=== PATIENT | female | born 1940 | race Caucasian/White ===

== ENCOUNTER 2019-02-02 11:26 | Inpatient (IN) | payer MEDICARE ==
[~2019-02-02] VITALS: Ht 177.8 cm; Wt 92.3 kg
[2019-02-02] MEDS ORDERED: MORPHINE 4 MG/ML 1ML VIAL/SYRINGE (J2270) IV PRN ×2 (12:00→15:00)
[2019-02-02] MEDS ORDERED: ONDANSETRON 4MG/2ML VIAL (J2405) IV ONE (12:00)
[2019-02-02] MEDS ORDERED: ATOR40TA75 PO (12:02)
[2019-02-02] MEDS ORDERED: CITA20TA6 PO (12:02)
[2019-02-02] MEDS ORDERED: DITR1TAB PO (12:02)
[2019-02-02] MEDS ORDERED: ACET1TAB37 PO (12:02)
[2019-02-02] MEDS ORDERED: VITAD1000T PO (12:02)
[2019-02-02] MEDS ORDERED: GLIP10TA PO (12:02)
[2019-02-02] MEDS ORDERED: PANT500T PO (12:02)
[2019-02-02] MEDS ORDERED: NS 1,000 ML IV ONE (12:15)
[2019-02-02] MEDS ORDERED: diphenhydrAMINE INJ 50MG/ML VIAL (J1200) IV STA (12:19)
[2019-02-02] MEDS ORDERED: fentaNYL 100 MCG/2 ML INJECTION (J3010) IV PRN ×2 (12:45→19:00)
--- NOTE | 2019-02-02 12:45 | REP ---
PELVIS AND RIGHT HIP: AP view of the pelvis and two views of the right hip are performed. Study is somewhat limited as the patient is not able to move for appropriate positioning. There is an intertrochanteric fracture of the proximal right femur. There is no other evidence of fracture or dislocation of the visualized osseous structures. IMPRESSION: Intertrochanteric fracture proximal right femur. Electronically Signed by Juancho Marrufo MD 02/02/2019 07:32 P
[2019-02-02 13:03] LABS: HEMOGLOBIN 14.2 g/dl (12.0-15.5); MEAN CORPUSCULAR HEMOGLOBIN 29.6 pg (27.0-33.0); MEAN CORPUSCULAR VOLUME 89.8 fl (80.0-96.0); PLATELET COUNT, AUTOMATED 262 10^3/uL (150-450); RED BLOOD COUNT 4.79 10^6/uL (4.00-5.40); WHITE BLOOD COUNT 13.6 10^3/uL (4.0-10.0)
[2019-02-02 13:17] LABS: INR 0.97
[2019-02-02 13:18] LABS: PARTIAL THROMBOPLASTIN TIME 27.6 SECONDS (25.4-37.6)
--- NOTE | 2019-02-02 13:20 | REP ---
CHEST, SINGLE VIEW: Single view of the chest is performed. No infiltrate is seen in either lung. Cardiac silhouette is mildly prominent, but may be magnified by AP supine technique. Vasculature also is mildly prominent, but again is probably accentuated by technique. There are metallic clips in both axillary regions. There is calcification of the thoracic aorta. The mediastinal silhouette is otherwise unremarkable. There are degenerative changes of the spine. IMPRESSION: No acute infiltrate. Electronically Signed by Juancho Marrufo MD 02/02/2019 07:33 P
[2019-02-02 13:36] LABS: BLOOD UREA NITROGEN 24 MG/DL (7-18); CALCIUM LEVEL 8.9 MG/DL (8.8-10.2); CARBON DIOXIDE LEVEL 31 MEQ/L (21-32); CHLORIDE LEVEL 103 MEQ/L (98-107); CK-MB VALUE MASS 1.3 NG/ML (<3.6); CPK CREATINE PHOSPHOKINASE 131 U/L (26-192); CREATININE FOR GFR 0.62 MG/DL (0.55-1.30); GLOMERULAR FILTRATION RATE > 60.0 (>39); GLUCOSE, FASTING 172 MG/DL (70-100); MB/CK RELATIVE INDEX 0.99 (< OR =4); POTASSIUM SERUM 4.7 MEQ/L (3.5-5.1); SODIUM LEVEL 139 MEQ/L (136-145); TROPONIN I < 0.02 NG/ML (< 0.10)
[2019-02-02] MEDS ORDERED: NS 1,000 ML IV SCH (14:15)
--- NOTE | 2019-02-02 14:59 | HPEPDOC ---
General Date of Admission Feb 02, 2019 at 13:45 Date of Service: Feb 02, 2019 Chief Complaint The patient is a 78-year-old female admitted with a reason for visit of Fx Hip. Source: Patient, Family Exam Limitations: No limitations Severity: Moderate History of Present Illness This is a 78 yo female with past medical history of DM2, depression, b/l breast CA s/p chemo/radiation and b/l mastectomy about 7 years prior, urinary retention and DLP who presented to the ED with the complaint of pain at the right upper thigh area after falling down at home. The patient states that when she was at home this morning, she tried to move some inner tubes in her garage, unfortunately when she walked away her right foot became entangled in the rope and she fell onto her right side. She immediately had pain in her right hip region and called for help. She wasn't able to get up and bear weight on the right leg due to the pain. She states she did not have any preceding SOB, CP, palpitations n/v, light headedness prior to the fall, she did not sustain LOC, did not hit her head and she has clear recollection of the event. She denies p ain in the right hip region at all prior to the fall. She states she ate breakfast around 7:30-8 AM this morning, she did take all of her home medications this morning including her metformin and her glipizide. Currently she is laying in bed and complains of right intertrochanter pain which she can localize by pointing to it using her finger, she states she only has pain when she moves her leg, she denies SOB, CP or palpitations, no n/v. Home Medications Scheduled Atorvastatin Calcium (Atorvastatin Calcium) 40 Mg Tablet, 40 MG PO DAILY, (R eported) Cholecalciferol (Vitamin D3) (Vitamin D3) 5,000 Unit Tablet, 5,000 UNIT PO DAILY, (Reported) Citalopram Hydrobromide (Citalopram HBr) 20 Mg Tablet, 20 MG PO DAILY, (Reported) Glipizide (Glipizide Xl) 5 Mg Tab.er.24, 5 MG PO DAILY, (Reported) Metformin HCl (Metformin HCl) 500 Mg Tablet, 500 MG PO BID, (Reported) Oxybutynin Chloride (Ditropan Xl) 10 Mg Tab.er.24, 10 MG PO DAILY, (Reported) Pantothenic Acid (Vit B5) (Pantothenic Acid) 500 Mg Tablet, 500 MG PO DAILY, (Reported) Rivaroxaban (Xarelto) 10 Mg Tablet, 10 MG PO DAILY Scheduled PRN Acetaminophen (Acetaminophen) 325 Mg Tablet, 650 MG PO Q4H PRN for PAIN, (Reported) Tramadol HCl (Tramadol HCl) 50 Mg Tablet, 1-2 TAB PO Q4H PRN for PAIN Allergies Coded Allergies: aspirin (Verified Allergy, Mild, nausea, 02/02/19) Past Medical History Medical History as per [facility] Surgical History b/l mastectomy, breast lumpectomy, left knee replacement Family History Significant Family History: Diabetes Social History * Smoker: former Smoker (quit 20 years ago, was 1 ppd for 10+ years) Alcohol: rarely Drugs: jorge lives at home in senior apartment building in [facility], daughter Ghazal is also in [place] and helps to look after her A-FIB/CHADSVASC A-FIB History Current/History of A-Fib/PAF?: No Current PO Anticoag Therapy: No Review of Systems Constitutional: Reports: Malaise, Fatigue; Denies: Chills, Fever Skin: Denies: Rash, Lesions Pulmonary: Denies: Dyspnea, Cough Cardiovascular: Denies: Chest Pain, Palpitations, Lt Headedness Gastrointestinal: Denies: Nausea, Vomiting, Abdominal Pain, Diarrhea, Constipation Genitourinary: Denies: Dysuria Musculoskeletal: Reports: Other Symptoms (right intertrochanter pain) Neurological: Denies: Weakness Psych: Reports: Mood Normal Physical Examination General Exam: Positive: Alert, Cooperative, Mild Distress Eye Exam: Positive: EOMI ENT Exam: Positive: Mucous membr. moist/pink Chest Exam: Positive: Normal air movement; Negative: Rales, Rhonchi, Wheezing Heart Exam: Positive: Rate Normal, Normal S1, Normal S2; Negative: Gallops, Murmurs, Rubs Abdomen Exam: Positive: Normal bowel sounds, Soft; Negative: Tenderness, Hepatospenomegaly Extremity Exam: Positive: Tenderness (intertrochanter right side, with leg movement); Negative: Clubbing, Cyanosis, Edema, Swelling Skin Exam: Negative: Rash, Breakdown Neuro Exam: Positive: Normal Speech Psych Exam: Positive: Mood NL Vital Signs Vital Signs Date Time Temp Pulse Resp B/P (MAP) Pulse Ox O2 Delivery O2 Flow Rate FiO2 02/02/19 14:01 78 18 149/67 (94) 95 Room Air 02/02/19 11:29 97.9 Laboratory Data Labs 24H Laboratory Tests 2 02/02/19 12:20: Nucleated Red Blood Cells % (auto) 0.0, Prothrombin Time 13.0, Prothromb Time International Ratio 0.97, Activated Partial Thromboplast Time 27.6, Anion Gap 5L, Glomerular Filtration Rate > 60.0, Blood Urea Nitrogen 24H, Creatinine 0.62, Sodium Level 139, Potassium Level 4.7, Chloride Level 103, Carbon Dioxide Level 31, Calcium Level 8.9, Total Creatine Kinase 131, Creatine Kinase MB 1.3, Creatine Kinase MB Relative Index 0.99, Troponin I < 0.02 CBC/BMP Laboratory Tests 02/02/19 12:20 Red Blood Count 4.79, Mean Corpuscular Volume 89.8, Mean Corpuscular Hemoglobin 29.6, Mean Corpuscular Hemoglobin Concent 33.0, Red Cell Distribution Width 13.3, Calcium Level 8.9, Total Creatine Kinase 131 Assessment/Plan 1. Right lower extremity pain secondary to R. intertrochanteric femur fracture -Hip/pelvic X-ray in ED appreciated -Orthopedics have been consulted, appreciate Dr. Hawkins-plan is for sx this afte rnoon/early evening -bedrest, pain control w/ Morphine, c/w IVF NS --EKG in ED reviewed, without concern for active or impending ischemia, no concerning ST-T wave changes. I did not see any pathological Q waves. -Due to DM2 and age, she represents a 3.9 % 30 day risk of , AR or cardiac arrest according to the 2019 RCRI, she represents a Class 1 low risk for moderate risk surgery in this case being an orthopedic r hip repair -Since she is 78 we have ordered BNP, if elevated will order EKG in PACU and will trend troponins for 48 hrs. -The patient is medically optimized for surgery. 2. DM2 -Pt NPO, FSBS q6h, holding home metformin and glipizide, since she did take these medications this morning, she may require D5W fluids this afternoon - Last FSBS was 172, acceptable 3. DLP- -Holding home statin, we will likely resume this tomorrow 4. Depression -holding home citalopram for now, can consider adding this tomorrow. 5. DVT px - in light of expected sx., will hold on AC., TEDS/SCD's - she will be on AC by Orthopedics for 4-6 wks post op Plan / VTE VTE Prophylaxis Ordered?: Yes GME ATTESTATION GME ATTESTATION My faculty preceptor for this patient encounter was physically present during the encounter and was fully available. All aspects of the patient interview, examination, medical decision making process, and medical care plan development were reviewed and approved by the faculty preceptor. The faculty preceptor is aware and concurs with the plan as stated in the body of this note and will attest to such by his/her cosignature. ATTENDING NOTE I personally performed a history and physical examination of the patient and discussed the management with the resident. I reviewed the resident's note and agree with the documented findings and plan of care. BECKA ESCOBEDO DO Feb 02, 2019 14:59 ABEBE OAKES MD Feb 06, 2019 05:46
[2019-02-02] MEDS ORDERED: VITA500038 PO (15:02)
[2019-02-02] MEDS ORDERED: METF-839 PO (15:02)
[2019-02-02] MEDS ORDERED: NON-325T5 PO (15:02)
[2019-02-02] MEDS ORDERED: GLIP-162 PO (15:02)
[2019-02-02 15:49] LABS: NT-PRO BNP 270 PG/ML (<450)
[2019-02-02] MEDS ORDERED: MIDAZOLAM INJ 2 MG/2 ML VIAL (J2250) As Ordered ONE ×2 (16:44→17:37)
[2019-02-02] MEDS ORDERED: BUPIVACAINE HCL 0.25% 10 ML VIAL As Ordered ONE (16:44)
[2019-02-02] MEDS ORDERED: fentaNYL 100 MCG/2 ML INJECTION (J3010) As Ordered ONE ×2 (16:44→17:37)
--- NOTE | 2019-02-02 17:03 | CR.PDOC ---
General Date of Consultation: Feb 02, 2019 Referring Provider: Jose Armando Sifuentes M.D. Attending Physician: RAMON GANDHI MD Consultation REASON FOR CONSULTATION/CHIEF COMPLAINT: R hip fracture. HISTORY OF PRESENT ILLNESS: Patient is a 78 y/o female community ambulator with no assistive devices who sustained a mechanical fall from standing height earlier today resulting in immediate R hip pain and inability to bear weight. She was brought to the emergency room where she was found to have an intertr ochanteric femur fracture and orthopedics was consulted for further management. Patient does have a history of bilateral mastectomy for recurrent breast CA in 2009 but denied any antecedent hip pain prior to fall. She denied any antecedent chest pain, calf pain, shortness of breath, headache, or nausea. ALLERGIES: Please see below. HOME MEDICATIONS: Please see below. PAST MEDICAL HISTORY: 1. Breast Cancer per HPI 2. Hyperlipidemia 3. Urinary retention PAST SURGICAL HISTORY: 1. R breast lumpectomy 2. Bilateral mastectomy FAMILY HISTORY: non contributory SOCIAL HISTORY: Patient lives alone and is independent in all ADLs. She lives in [place] but has local house where she spends summer. She is retired. Does not smoke or use illicit drugs. Daughter Ghazal, who was present, is HC proxy but patient currently able to make independent decisions regarding care. REVIEW OF SYSTEMS: CONSTITUTIONAL: No fevers, chills, or night sweats. HEENT: No headache or visual disturbances. CARDIOVASCULAR: No chest pain or palpitations. RESPIRATORY: No cough, wheeze, or shortness of breath. MUSCULOSKELETAL: R elbow abrasion in addition to hip pain from fall. GASTROINTESTINAL: No nausea, vomiting, or diarrhea. NEUROLOGICAL: No numbness, tingling, seizures. HEMATOLOGIC/LYMPHATIC: Breast CA history per HPI. PHYSICAL EXAMINATION: VITAL SIGNS: Please see below. GENERAL APPEARANCE: Well nourished female, appears stated age, no acute distress. HEENT: Normocephalic, atraumatic. RESPIRATORY: Non labored breathing. CARDIOVASCULAR: RRR, 2+ DP/PT pulse, BCR all digits RLE. EXTREMITIES: Focused exam of the RLE demonstrates a shortened, externally rotated RLE. There are no open wounds or abrasions. Maximally tender about the anterior and lateral hip. Able to flex/extend all toes. No tenderness about the knee or leg. There is also a small superficial abrasion about the right elbow with full painless elbow ROM. NEUROLOGICAL: Sensation and motor intact in RLE femoral, tibial, sural, saphenous, SPN, DPN distributions LABORATORY DATA: Please see below. Radiographs: Plain radiographs of the pelvis, R hip, and femur demonstrated a displaced intertrochanteric femur fracture ASSESSMENT: 78 y/o female with a displaced R intertrochanteric femur fracture PLAN: I discussed with the patient the nature of her injury and the risks, benefits, indications, and alternatives of operative and nonoperative treatment and recommended closed versus open reduction and cephalomedullary nail fixation. De spite not having a history of antecedent hip pain, given her breast cancer history this may still possibly represent a pathologic fracture therefore will use a long cephalomedullary nail to protect the entire bone and send reamings for pathology. I counseled the patient that I will be her operating surgeon, but her follow up care will be conducted by [facility]. She expressed understanding with this arrangement and provided informed consent for R hip closed versus open reduction and internal fixation. -NPO -2g Ancef IV OCTOR -Will be WBAT post operatively -Xarelto 10mg PO daily begin POD1 Vital Signs/I&O Vital Signs Date Time Temp Pulse Resp B/P (MAP) Pulse Ox O2 Delivery O2 Flow Rate FiO2 02/02/19 14:01 78 18 149/67 (94) 95 Room Air 02/02/19 11:29 97.9 Laboratory Data Labs 24H Laboratory Tests 2 02/02/19 12:20: Nucleated Red Blood Cells % (auto) 0.0, Prothrombin Time 13.0, Prothromb Time International Ratio 0.97, Activated Partial Thromboplast Time 27.6, Anion Gap 5L, Glomerular Filtration Rate > 60.0, Blood Urea Nitrogen 24H, Creatinine 0.62, Sodium Level 139, Potassium Level 4.7, Chloride Level 103, Carbon Dioxide Level 31, Calcium Level 8.9, Total Creatine Kinase 131, Creatine Kinase MB 1.3, Creatine Kinase MB Relative Index 0.99, Troponin I < 0.02 CBC/BMP Laboratory Tests 02/02/19 12:20 Red Blood Count 4.79, Mean Corpuscular Volume 89.8, Mean Corpuscular Hemoglobin 29.6, Mean Corpuscular Hemoglobin Concent 33.0, Red Cell Distribution Width 13.3, Calcium Level 8.9, Total Creatine Kinase 131 Allergies Coded Allergies: aspirin (Verified Allergy, Mild, nausea, 02/02/19) Home Medications Scheduled Atorvastatin Calcium (Atorvastatin Calcium) 40 Mg Tablet, 40 MG PO DAILY, (Reported) Cholecalciferol (Vitamin D3) (Vitamin D3) 5,000 Unit Tablet, 5,000 UNIT PO DAILY, (Reported) Citalopram Hydrobromide (Citalopram HBr) 20 Mg Tablet, 20 MG PO DAILY, (Repor shane) Glipizide (Glipizide Xl) 5 Mg Tab.er.24, 5 MG PO DAILY, (Reported) Metformin HCl (Metformin HCl) 500 Mg Tablet, 500 MG PO BID, (Reported) Oxybutynin Chloride (Ditropan Xl) 10 Mg Tab.er.24, 10 MG PO DAILY, (Reported) Pantothenic Acid (Vit B5) (Pantothenic Acid) 500 Mg Tablet, 500 MG PO DAILY, (Reported) Scheduled PRN Acetaminophen (Acetaminophen) 325 Mg Tablet, 650 MG PO Q4H PRN for PAIN, (Reported) RAOMN GANDHI MD Feb 02, 2019 14:34
[2019-02-02] MEDS ORDERED: ceFAZolin 2 GM/D5W 50 ML IV BAG (J0690 PER 500MG) As Ordered ONE (17:13)
[2019-02-02] MEDS ORDERED: KETAMINE HCL 200 MG/20 ML VIAL As Ordered ONE (17:37)
[2019-02-02] MEDS ORDERED: PROPOFOL 200 MG/20 ML VIAL As Ordered ONE ×2 (17:40→17:41)
[2019-02-02] MEDS ORDERED: BUPIVACAINE HCL 0.5% 30 ML VIAL As Ordered ONE (17:40)
[2019-02-02] MEDS ORDERED: LIDOCAINE 2% INJ 100 MG/5 ML SDV (FOR ANES.) As Ordered ONE (17:41)
[2019-02-02] MEDS ORDERED: dexameTHASONE 4 MG/ML 1ML VIAL (J1100) As Ordered ONE (17:41)
[2019-02-02] MEDS ORDERED: ePHEDrine SULFATE 25 MG/5 ML(5MG/ML) SYRINGE As Ordered ONE (17:46)
[2019-02-02] MEDS ORDERED: PHENYLephrine HCL 500 MCG/5 ML (100MCG/ML) SYRINGE (J2370) As Ordered ONE (17:46)
[2019-02-02] MEDS ORDERED: oxyCODONE 5MG TAB PO PRN (19:00)
[2019-02-02] MEDS ORDERED: PROMETHAZINE INJ 25 MG/ML VIAL (J2550) IV PRN (19:00)
[2019-02-02] MEDS ORDERED: LR 1,000 ML IV SCH (19:00)
[2019-02-02] MEDS ORDERED: METOCLOPRAMIDE INJ 10MG/2ML VIAL (J2765) IV PRN (19:00)
[2019-02-02] MEDS ORDERED: LIDOCAINE 1% MDV 20ML VIAL ONE (19:10)
[2019-02-02] MEDS ORDERED: BUPIVACAINE/EPIN 0.25% 30 ML VIAL ONE (19:10)
[2019-02-02] MEDS ORDERED: dexameTHASONE 10 MG/1 ML VIAL PRES.FREE (J1100) ONE (19:10)
[2019-02-02] MEDS ORDERED: ACETAMINOPHEN TAB 650MG DOSE (2X325MG) PO PRN (19:15)
[2019-02-02] MEDS ORDERED: traMADol 50 MG TAB PO PRN ×2 (19:15)
[2019-02-02] MEDS ORDERED: ONDANSETRON 4MG/2ML VIAL (J2405) IV PRN (19:30)
[2019-02-02 20:15] VITALS: BP 118/54
[2019-02-02] MEDS: DOCUSATE SODIUM 100 MG CAP PO SCH (20:43)
[2019-02-02 20:45] VITALS: BP 129/80
[2019-02-02 21:45] VITALS: BP 138/72
[2019-02-02 22:45] VITALS: BP 140/73
[2019-02-03 02:00] VITALS: BP 123/57
[2019-02-03 06:00] VITALS: BP 127/58
[2019-02-03 06:22] LABS: HEMATOCRIT 36.4 % (36.0-47.0); MEAN CORPUSCULAR HEMOGLOBIN 30.1 pg (27.0-33.0); MEAN CORPUSCULAR HGB CONC 33.5 g/dl (32.0-36.5); MEAN CORPUSCULAR VOLUME 89.9 fl (80.0-96.0); PLATELET COUNT, AUTOMATED 241 10^3/uL (150-450); RED BLOOD COUNT 4.05 10^6/uL (4.00-5.40); WHITE BLOOD COUNT 8.5 10^3/uL (4.0-10.0)
[2019-02-03 06:29] LABS: HEMOGLOBIN 12.2 g/dl (12.0-15.5)
[2019-02-03] MEDS ORDERED: ONDANSETRON 4 MG TAB (S0181) PO PRN (06:30)
[2019-02-03 06:40] LABS: BLOOD UREA NITROGEN 20 MG/DL (7-18); CALCIUM LEVEL 8.8 MG/DL (8.8-10.2); CARBON DIOXIDE LEVEL 28 MEQ/L (21-32); CHLORIDE LEVEL 103 MEQ/L (98-107); CREATININE FOR GFR 0.65 MG/DL (0.55-1.30); GLOMERULAR FILTRATION RATE > 60.0 (>39); GLUCOSE, FASTING 192 MG/DL (70-100); POTASSIUM SERUM 4.4 MEQ/L (3.5-5.1); SODIUM LEVEL 138 MEQ/L (136-145)
--- NOTE | 2019-02-03 07:00 | REP ---
RIGHT FEMUR: AP and lateral views of the right femur are performed. Intertrochanteric fracture is again noted of the proximal right femur with mild varus angulation. I do not see a definite underlying bone lesion. The more distal femur is intact. There is moderate narrowing of the medial knee joint with subchondral sclerosis and spurring. There is mild narrowing at the hip joint. Electronically Signed by Juancho Marrufo MD 02/03/2019 04:13 P
[2019-02-03] MEDS ORDERED: glipiZIDE (GLUCOTROL) 5 MG TAB PO SCH (07:30)
[2019-02-03] MEDS: MIRALAX *UNIT DOSE* 17GM PACKET PO SCH (09:00)
[2019-02-03] MEDS: MOM 30ML SUSPENSION UDC PO SCH (09:34)
[2019-02-03] MEDS: DOCUSATE SODIUM 100 MG CAP PO SCH ×2 (09:34→20:06)
--- NOTE | 2019-02-03 09:36 | REP ---
C-ARM VIEWS RIGHT FEMUR: Multiple C-arm views of the right femur are performed during placement of an intramedullary hanane, proximal anchor and two distal screws. Proximal femur fracture is well aligned. 2 minutes 56 seconds of fluoroscopy time utilized. Electronically Signed by Juancho Marrufo MD 02/03/2019 04:26 P
--- NOTE | 2019-02-03 10:24 | IPNPDOC ---
Subjective Date Seen The patient was seen on 02/03/19. Subjective Chief Complaint/HPI No complaints this am. Said slept all night without issues. Pain is controlled. WIll be working with PT today. No fever or chills, no chest pain ro SOB , no abdominal pain , nausea or vomiting or diarrhea Objective Physical Examination General Exam: Positive: Alert, Cooperative, Mild Distress Eye Exam: Positive: EOMI ENT Exam: Positive: Mucous membr. moist/pink Chest Exam: Positive: Normal air movement; Negative: Rales, Rhonchi, Wheezing Heart Exam: Positive: Rate Normal, Normal S1, Normal S2; Negative: Gallops, Murmurs, Rubs Abdomen Exam: Positive: Normal bowel sounds, Soft; Negative: Tenderness, Hepatospenomegaly Extremity Exam: Positive: Tenderness (intertrochanter right side, with leg movement); Negative: Clubbing, Cyanosis, Edema, Swelling Skin Exam: Negative: Rash, Breakdown Neuro Exam: Positive: Normal Speech Psych Exam: Positive: Mood NL Assessment /Plan Assessment This is a 78 yo female with past medical history of DM2, depression, b/l breast CA s/p chemo/radiation and b/l mastectomy about 7 years prior, urinary retention and DLP who presented to the ED with the complaint of pain at the right upper thigh area after falling down at home. She was found to have right intertrochanteric femoral neck fracture. Right lower extremity pain secondary to R. intertrochanteric femur fracture Hip/pelvic X-ray in ED appreciated s/p ORIF on 02/02/[address] Hawkins. pain control and DVT prophylaxis as per ortho Bowel regimen. DM2 restart glipizide. hold metformin in hosptital start lispro sliding scale. DLP- statin Depression citalopram Plan/VTE VTE Prophylaxis Ordered?: Yes VS, I&O, 24H, Fishbone Vital Signs/I&O Vital Signs Date Time Temp Pulse Resp B/P (MAP) Pulse Ox O2 Delivery O2 Flow Rate FiO2 02/03/19 06:00 97.8 76 18 127/58 (81) 94 2.0 02/02/19 16:20 Room Air I&O- Last 24 Hours up to 6 AM 02/03/19 06:00 Intake Total 2280 ml Output Total 1225 ml Balance 1055 ml Laboratory Data 24H LABS Laboratory Tests 2 02/02/19 12:20: Nucleated Red Blood Cells % (auto) 0.0, Prothrombin Time 13.0, Prothromb Time International Ratio 0.97, Activated Partial Thromboplast Time 27.6, Anion Gap 5L, Glomerular Filtration Rate > 60.0, Blood Urea Nitrogen 24H, Creatinine 0.62, Sodium Level 139, Potassium Level 4.7, Chloride Level 103, Carbon Dioxide Level 31, Calcium Level 8.9, Total Creatine Kinase 131, Creatine Kinase MB 1.3, Creatine Kinase MB Relative Index 0.99, Troponin I < 0.02, XE-Pey-B-Type Natriuretic Peptide 270 02/02/19 20:14: Bedside Glucose (Misc Panel) 148H 02/03/19 05:14: Nucleated Red Blood Cells % (auto) 0.0, Anion Gap 7L, Glomerular Filtration Rate > 60.0, Blood Urea Nitrogen 20H, Creatinine 0.65, Sodium Level 138, Potassium Level 4.4, Chloride Level 103, Carbon Dioxide Level 28, Calcium Level 8.8 CBC/BMP Laboratory Tests 02/02/19 12:20 Red Blood Count 4.79, Mean Corpuscular Volume 89.8, Mean Corpuscular Hemoglobin 29.6, Mean Corpuscular Hemoglobin Concent 33.0, Red Cell Distribution Width 13.3, Calcium Level 8.9, Total Creatine Kinase 131 02/03/19 05:14 Red Blood Count 4.05, Mean Corpuscular Volume 89.9, Mean Corpuscular Hemoglobin 30.1, Mean Corpuscular Hemoglobin Concent 33.5, Red Cell Distribution Width 13.3, Calcium Level 8.8 ABEBE OAKES MD Feb 03, 2019 10:24
[2019-02-03] MEDS ORDERED: GLUCAGON FOR INJ 1 MG VIAL (J1610) SC PRN (10:30)
[2019-02-03] MEDS ORDERED: DEXTROSE 50% 50 ML SYRINGE IV PRN (10:30)
[2019-02-03] MEDS ORDERED: GLUCOSE 4 GM CHEW TABLET PO PRN (10:30)
--- NOTE | 2019-02-03 10:34 | REP ---
RIGHT HIP, TWO VIEWS: Two portable view of the right hip are performed. There is an intramedullary hanane in the femoral shaft, distal aspect not visualized. There is an anchor in the proximal femur extending through the intertrochanteric region into the femoral head. The intertrochanteric fracture is well aligned. Electronically Signed by Juancho Marrufo MD 02/03/2019 04:27 P
[2019-02-03] MEDS: CitaloPRAM (CeleXA) 20 MG TAB PO SCH (11:59)
[2019-02-03] MEDS: ATORVASTATIN 20 MG TAB PO SCH (11:59)
[2019-02-03] MEDS: HumaLOG INSULIN (NovoLOG) PER UNIT SC SCH ×2 (12:00→16:28)
[2019-02-03] MEDS: oxyBUTYnin *DITROPAN XL* 5 MG TABCR PO SCH (12:00)
--- NOTE | 2019-02-03 12:23 | IPNPDOC ---
Date Seen The patient was seen on 02/03/19. Progress Note SUBJECTIVE: Patient is a 78 y/o female POD1 s/p R hip cephalomedullary nail fixation. Patient was seen and examined at bedside. No acute overnight events. No complaints. Pain well controlled OBJECTIVE PHYSICAL EXAMINATION: VITAL SIGNS: Please see below. GENERAL: Well nourished female, NAD CARDIOVASCULAR: RRR, 2+ DP, PT pulses, BCR all digits RLE. RESPIRATORY: Non labored breathing. EXTREMITIES: R hip dressings c/d/i. Patient able to flex/extend toes and knee without difficulty. No pain with logroll NEUROLOGICAL: Sensation and motor intact in RLE femoral, tibial, sural, saphenous, SPN, DPN distribution LABORATORY DATA, IMAGING STUDIES, MICROBIOLOGY: Plain radiographs post op demonstrate anatomic reduction of the proximal femur with appropriate hardware placement. Intraoperative reamings sent for pathology pending DVT prophylaxis ordered?: Xarelto ASSESSMENT: This is a 78 y/o female POD1 s/p R hip CMN fixation doing well PLAN: 1. WBAT RLE 2. Daily physical therapy while inpatient for ambulation with a walker 3. d/c benitez 4. Xarelto 10mg PO daily for DVT prophylaxis 5. discharge by hospitalist service when criteria met VS, [facility]&O[facility] V[facility] Signs/I&O Vital Signs Date Time Temp Pulse Resp B/P (MAP) Pulse Ox O2 Delivery O2 Flow Rate FiO2 02/03/19 09:30 76 16 96 02/03/19 06:00 97.8 127/58 (81) 2.0 02/02/19 16:20 Room Air I&O- Last 24 Hours up to 6 AM 02/03/19 06:00 Intake Total 2280 ml Output Total 1225 ml Balance 1055 ml Laboratory Data 24H LABS Laboratory Tests 2 02/02/19 12:20: Nucleated Red Blood Cells % (auto) 0.0, Prothrombin Time 13.0, Prothromb Time International Ratio 0.97, Activated Partial Thromboplast Time 27.6, Anion Gap 5L, Glomerular Filtration Rate > 60.0, Blood Urea Nitrogen 24H, Creatinine 0.62, Sodium Level 139, Potassium Level 4.7, Chloride Level 103, Carbon Dioxide Level 31, Calcium Level 8.9, Total Creatine Kinase 131, Creatine Kinase MB 1.3, Creatine Kinase MB Relative Index 0.99, Troponin I < 0.02, AK-Oww-M-Type Natriuretic Peptide 270 02/02/19 20:14: Bedside Glucose (Misc Panel) 148H 02/03/19 05:14: Nucleated Red Blood Cells % (auto) 0.0, Anion Gap 7L, Glomerular Filtration Rate > 60.0, Blood Urea Nitrogen 20H, Creatinine 0.65, Sodium Level 138, Potassium Level 4.4, Chloride Level 103, Carbon Dioxide Level 28, Calcium Level 8.8 02/03/19 11:44: Bedside Glucose (Misc Panel) 193H CBC/BMP Laboratory Tests 02/02/19 12:20 Red Blood Count 4.79, Mean Corpuscular Volume 89.8, Mean Corpuscular Hemoglobin 29.6, Mean Corpuscular Hemoglobin Concent 33.0, Red Cell Distribution Width 13.3, Calcium Level 8.9, Total Creatine Kinase 131 02/03/19 05:14 Red Blood Count 4.05, Mean Corpuscular Volume 89.9, Mean Corpuscular Hemoglobin 30.1, Mean Corpuscular Hemoglobin Concent 33.5, Red Cell Distribution Width 13.3, Calcium Level 8.8 RAMON GANDHI MD Feb 03, 2019 12:23
[2019-02-03 15:32] VITALS: BP 157/67
[2019-02-03] MEDS: traMADol 50 MG TAB PO PRN ×2 (17:03→23:49)
[2019-02-03] MEDS ORDERED: RIVAROXABAN 10 MG TAB (XARELTO) PO SCH (18:00)
--- NOTE | 2019-02-03 18:46 | ECGEPIP ---
[facility] - ED Test Date: 2019-02-02 Pat Name: ILA JORDAN Department: Room: [place] [address] Gender: Female [employer]: HIRAL : 1940 Requested By: Jose Armando Daigle Order Number: [id number] Reading MD: Ciarra Frank Measurements Intervals [place] Rate: 68 P: 69 W[place]: 185 QRS: 24 QRSD: 99 T: 37 QT: 415 QTc: 444 Interpretive Statements SINUS RHYTHM WITH OCCASIONAL VENTRICULAR PREMATURE COMPLEXES NSTTW abnormalities NO PRIOR FOR COMPARISON Electronically Signed on 02-03-2019 18:46:04 EDT by Ciarra Frank
[2019-02-03 20:50] VITALS: BP 150/59
[2019-02-03] MEDS ORDERED: HumaLOG INSULIN (NovoLOG) PER UNIT SC SCH (21:00)
[2019-02-04] MEDS: traMADol 50 MG TAB PO PRN (05:22)
[2019-02-04 05:42] LABS: BASO # 0.1 10^3/uL (0.0-0.2); BASO % 0.7 % (0.0-1.0); EOS # 0.1 10^3/uL (0.0-0.50); EOS % 1.2 % (0.0-3.0); HEMATOCRIT 32.3 % (36.0-47.0); HEMOGLOBIN 10.6 g/dl (12.0-15.5); LYMPH # 1.2 10^3/uL (1.5-4.5); LYMPH % 16.2 % (24.0-44.0); MEAN CORPUSCULAR HEMOGLOBIN 28.9 pg (27.0-33.0); MEAN CORPUSCULAR HGB CONC 32.8 g/dl (32.0-36.5); MONO # 0.6 10^3/uL (0.0-0.8); MONO % 8.3 % (0.0-5.0); NEUTROPHILS # 5.5 10^3/uL (1.8-7.7); NEUTROPHILS % 73.1 % (36.0-66.0); PLATELET COUNT, AUTOMATED 225 10^3/uL (150-450); RED BLOOD COUNT 3.67 10^6/uL (4.00-5.40); WHITE BLOOD COUNT 7.6 10^3/uL (4.0-10.0)
[2019-02-04 06:00] VITALS: BP 123/53
[2019-02-04 06:03] LABS: BLOOD UREA NITROGEN 22 MG/DL (7-18); CALCIUM LEVEL 8.4 MG/DL (8.8-10.2); CARBON DIOXIDE LEVEL 33 MEQ/L (21-32); CHLORIDE LEVEL 103 MEQ/L (98-107); CREATININE FOR GFR 0.54 MG/DL (0.55-1.30); GLOMERULAR FILTRATION RATE > 60.0 (>39); GLUCOSE, FASTING 169 MG/DL (70-100); POTASSIUM SERUM 4.3 MEQ/L (3.5-5.1); SODIUM LEVEL 137 MEQ/L (136-145)
[2019-02-04] MEDS ORDERED: TRAM50TA2 PO (06:56)
[2019-02-04] MEDS ORDERED: XARE10TA PO (06:56)
[2019-02-04] MEDS: HumaLOG INSULIN (NovoLOG) PER UNIT SC SCH ×2 (07:26→12:00)
--- NOTE | 2019-02-04 07:34 | IPNPDOC ---
Subjective Date Seen The patient was seen on 02/04/19. Subjective Chief Complaint/HPI Doing well after surgery. Working with PT. But feels she cannot manage at home at the current level of functioning. Requests to go to rehab. No fever or chills, no chest pain, No sob. Objective Physical Examination General Exam: Positive: Alert, Cooperative, Mild Distress Eye Exam: Positive: EOMI ENT Exam: Positive: Mucous membr. moist/pink Chest Exam: Positive: Normal air movement; Negative: Rales, Rhonchi, Wheezing Heart Exam: Positive: Rate Normal, Normal S1, Normal S2; Negative: Gallops, Murmurs, Rubs Abdomen Exam: Positive: Normal bowel sounds, Soft; Negative: Tenderness, Hepatospenomegaly Extremity Exam: Positive: Tenderness (intertrochanter right side, with leg movement); Negative: Clubbing, Cyanosis, Edema, Swelling Skin Exam: Negative: Rash, Breakdown Neuro Exam: Positive: Normal Speech Psych Exam: Positive: Mood NL Assessment /Plan Assessment This is a 78 yo female with past medical history of DM2, depression, b/l breast CA s/p chemo/radiation and b/l mastectomy about 7 years prior, urinary retention and DLP who presented to the ED with the complaint of pain at the right upper thigh area after falling down at home. She was found to have right intertrochanteric femoral neck fracture. Right lower extremity pain secondary to R. intertrochanteric femur fracture s/p ORIF on 02/02/[address] Hawkins. R hip cephalomedullary nail fixation. pain control and DVT prophylaxis as per ortho Bowel regimen. continue PT. DM2 restart glipizide. hold metformin in hospital start lispro sliding scale. DLP- statin Depression citalopram Plan/VTE VTE Prophylaxis Ordered?: Yes VS, I&O, 24H, Fishbone Vital Signs/I&O Vital Signs Date Time Temp Pulse Resp B/P (MAP) Pulse Ox O2 Delivery O2 Flow Rate FiO2 02/04/19 06:00 98.3 73 16 123/53 (76) 93 02/03/19 06:00 2.0 02/02/19 16:20 Room Air I&O- Last 24 Hours up to 6 AM 02/04/19 06:00 Intake Total 1490 ml Output Total 1750 ml Balance -260 ml Laboratory Data 24H LABS Laboratory Tests 2 02/03/19 11:44: Bedside Glucose (Misc Panel) 193H 02/03/19 16:25: Bedside Glucose (Misc Panel) 97 02/03/19 19:36: Bedside Glucose (Misc Panel) 135H 02/04/19 05:13: Immature Granulocyte % (Auto) 0.5, White Blood Count 7.6, Red Blood Count 3.67L, Hemoglobin 10.6L, Hematocrit 32.3L, Mean Corpuscular Volume 88.0, Mean Corpuscular Hemoglobin 28.9, Mean Corpuscular Hemoglobin Concent 32.8, Red Cell Distribution Width 13.7, Platelet Count 225, Neutrophils (%) (Auto) 73.1H, Lymphocytes (%) (Auto) 16.2L, Monocytes (%) (Auto) 8.3H, Eosinophils (%) (Auto) 1.2, Basophils (%) (Auto) 0.7, Neutrophils # (Auto) 5.5, Lymphocytes # (Auto) 1.2L, Monocytes # (Auto) 0.6, Eosinophils # (Auto) 0.1, Basophils # (Auto) 0.1, Nucleated Red Blood Cells % (auto) 0.0, Anion Gap 1L, Glomerular Filtration Rate > 60.0, Blood Urea Nitrogen 22H, Creatinine 0.54L, Sodium Level 137, Potassium Level 4.3, Chloride Level 103, Carbon Dioxide Level 33H, Calcium Level 8.4L CBC/BMP Laboratory Tests 02/04/19 05:13 Red Blood Count 3.67 L, Mean Corpuscular Volume 88.0, Mean Corpuscular Hemoglobin 28.9, Mean Corpuscular Hemoglobin Concent 32.8, Red Cell Distribution Width 13.7, Neutrophils (%) (Auto) 73.1 H, Lymphocytes (%) (Auto) 16.2 L, Mon ocytes (%) (Auto) 8.3 H, Eosinophils (%) (Auto) 1.2, Basophils (%) (Auto) 0.7, Neutrophils # (Auto) 5.5, Lymphocytes # (Auto) 1.2 L, Monocytes # (Auto) 0.6, Eosinophils # (Auto) 0.1, Basophils # (Auto) 0.1, Calcium Level 8.4 L ABEBE OAKES MD Feb 04, 2019 07:33
--- NOTE | 2019-02-04 07:43 | REP ---
RIGHT FEMUR: AP and lateral views of the right femur are performed. There is an intramedullary hanane in the femur. It is fixed distally by two metallic screws and proximally by an anchor extending through the intertrochanteric region into the femoral head. The intertrochanteric fracture is well aligned. Electronically Signed by Juancho Marrufo MD 02/04/2019 08:38 A
[2019-02-04] MEDS: MOM 30ML SUSPENSION UDC PO SCH (09:58)
[2019-02-04] MEDS: MIRALAX *UNIT DOSE* 17GM PACKET PO SCH (09:58)
--- NOTE | 2019-02-04 09:58 | RO ---
DATE OF PROCEDURE: 02/02/2019 PREOPERATIVE DIAGNOSIS: Right intertrochanteric femur fracture. POSTOPERATIVE DIAGNOSIS: Right intertrochanteric femur fracture. PROCEDURE PERFORMED: Right proximal femur open reduction cephalomedullary nail fixation. SURGEON: Camron Hawkins MD HOT ROLLER: LILIBETH Jackson ANESTHESIA PROVIDER: Chandu Burnette MD ANESTHESIA GIVEN: Single-shot spinal. IMPLANT USED: Synthes TFN-Advanced 400 mm x 11 mm nail with a 105 mm helical blade and two distal interlocking screws measuring 50 and 48 mm in length x 5 mm width. COMPLICATIONS: None. ESTIMATED BLOOD LOSS: 150 mL. ANTIBIOTICS: 2 grams Ancef given within 1 hour of incision. MATERIALS SENT TO LABORATORY: Right proximal femur reamings for permanent specimen. INDICATION FOR PROCEDURE: Lisa Colindres is a 78-year-old community ambulator with no assistive devices who sustained a mechanical fall from standing height resulting in a right proximal femur fracture. The patient does have a breast cancer history and had bilateral mastectomies but did not have any antecedent hip pain prior to her fall. However, given her history, we discussed different surgical treatment options and recommended long cephalomedullary nail fixation. The risks, benefits, indications, and alternatives were discussed with patient. I also counseled her that I will be her operating surgeon. Her followup care will be conducted by the [facility]. She expressed understanding of this arrangement and elected to proceed and provided written informed consent. INTRAOPERATIVE FINDINGS: The hip was stable after fixation with near-anatomic reduction. DESCRIPTION OF PROCEDURE: The patient was positively identified in the preoperative holding area, where the surgical site was marked. She was then brought to the operating room, where she was given a single-shot spinal anesthesia. She was then positioned supine on the fracture table with all bony prominences appropriately padded. Sequential compression device (SCD) was placed on nonoperative extremity for deep venous thrombosis (DVT) prophylaxis. I took preoperative processing analyst fluoroscopic images to obtain provisional reduction. This was then followed by prepping and draping in usual sterile fashion. A final time- out was performed. I made a 3 cm incision about 3 fingerbreadths proximal and posterior to the tip of the greater trochanter. I dissected through skin and subcutaneous tissue and introduced the 3.2 mm threaded guidepin in the tip of the greater trochanter. Centered on AP and lateral fluoroscopic imaging, it was advanced to the level of the lesser trochanter. This was then followed by placement of the opening reamer while maintaining anatomic reduction. I then introduced the ball-tip guidewire down to the level of the superior pole of the patella and centered on the AP and lateral fluoroscopic imaging. I then measured the wire and elected to place a 400 mm nail. I then passed a single 12.5 mm reamer. There were no reamings from this to send to be a specimen as the femoral canal was very wide at baseline. I then proceeded to place the nail. After the nail was placed, there was noted to be some displacement of the proximal fragment. I then made an accessory lateral incision and introduced a bone hook, and I was able to obtain anatomic reduction, which was maintained while the guidepin for the helical blade was inserted. The guide was centered on the femoral neck on AP and lateral imaging of the hip. This was then followed by measuring the length of the helical blade, which I then elected to place a 105 mm helical blade. I then reamed for the helical blade, and there were reamings from this that was sufficient to send to the laboratory. Then followed by placement of the helical blade in standard fashion. After the blade was placed, there was noted to be anatomic reduction of the proximal femur. I then took AP and lateral fluoroscopic imaging to confirm no intra-articular penetration of implants. I then placed two distal interlocking screws using standard perfect [place] technique. I then obtained final fluoroscopic images of the knee and hip, confirming adequate placement of all hardware and anatomic reduction of the fracture. At this point, the wounds were then thoroughly irrigated with normal saline. The proximal lateral incisions were closed with 2-0 Vicryl for the subcutaneous layer, followed by jasmina for the skin. The distal stab incisions for the interlocking screws were closed with jasmina. Sterile dressings were applied, and this ended the procedure. I was present and scrubbed in for all critical portions of the case. POSTOPERATIVE PLAN: The patient will return to hospital floor. She will be weightbearing as tolerated to the right lower extremity. She will undergo physical therapy for ambulation with a walker, start Xarelto for DVT prophylaxis, and be discharged when criteria met. DONY
[2019-02-04] MEDS: ATORVASTATIN 20 MG TAB PO SCH (10:00)
[2019-02-04] MEDS: DOCUSATE SODIUM 100 MG CAP PO SCH (10:00)
[2019-02-04] MEDS: CitaloPRAM (CeleXA) 20 MG TAB PO SCH (10:01)
[2019-02-04] MEDS: oxyBUTYnin *DITROPAN XL* 5 MG TABCR PO SCH (10:02)
--- NOTE | 2019-02-04 15:03 | DS.PDOC ---
Discharge Summary General Date of Admission Feb 02, 2019 at 13:45 Date of Discharge 02/04/19 Discharge Summary PROCEDURES PERFORMED DURING STAY: s/p ORIF on 02/02/[address] Hawkins. R hip cephalomedullary nail fixation. DISCHARGE DIAGNOSES: Right intertrochanteric femur fracture SECONDARY DIAGNOSIS: DM2, depression, b/l breast CA s/p chemo/radiation and b/l mastectomy about 7 years prior, urinary retention and DLP COMPLICATIONS/CHIEF COMPLAINT: Fx Hip. HISTORY OF PRESENT ILLNESS: Please see history and physical HOSPITAL COURSE: This is a 78 yo female with past medical history of DM2, depression, b/l breast CA s/p chemo/radiation and b/l mastectomy about 7 years prior, urinary retention and DLP who presented to the ED with the complaint of pain at the right upper thigh area after falling down at home. She was found to have right intertrochanteric femoral neck fracture. Right lower extremity pain secondary to R. intertrochanteric femur fracture s/p ORIF on 02/02/[address] Hawkins. R hip cephalomedullary nail fixation. pain control and DVT prophylaxis as per ortho Bowel regimen. continue PT. DM2 restart glipizide. hold metformin in hospital start lispro sliding scale. DLP- statin Depression citalopram DISCHARGE MEDICATIONS: Please see below. ALLERGIES: Please see below. PHYSICAL EXAMINATION ON DISCHARGE: VITAL SIGNS: Please see below. General Exam: Positive: Alert, Cooperative, Mild Distress Eye Exam: Positive: EOMI ENT Exam: Positive: Mucous membr. moist/pink Chest Exam: Positive: Normal air movement; Negative: Rales, Rhonchi, Wheezing Heart Exam: Positive: Rate Normal, Normal S1, Normal S2; Negative: Gallops, Murmurs, Rubs Abdomen Exam: Positive: Normal bowel sounds, Soft; Negative: Tenderness, Hepatospenomegaly Extremity Exam: Positive: surgical incision right hip Negative: Clubbing, Cyanosis, Edema, Swelling Skin Exam: Negative: Rash, Breakdown Neuro Exam: Positive: Normal Speech Psych Exam: Positive: Mood NL LABORATORY DATA: Please see below. ACTIVITY: [As tolerated]. DIET: Carb consistent DISCHARGE PLAN: Home DISCHARGE INSTRUCTIONS: 1. PMD in 1 month 2. Orthopedics as directed DISCHARGE CONDITION: [Stable]. TIME SPENT ON DISCHARGE: 35 minutes. Vital Signs/I&Os Vital Signs Date Time Temp Pulse Resp B/P (MAP) Pulse Ox O2 Delivery O2 Flow Rate FiO2 02/04/19 06:00 98.3 73 16 123/53 (76) 93 02/03/19 06:00 2.0 02/02/19 16:20 Room Air I&O- Last 24 Hours up to 6 AM 02/04/19 06:00 Intake Total 1490 ml Output Total 1750 ml Balance -260 ml Laboratory Data Labs 24H Laboratory Tests 2 02/03/19 16:25: Bedside Glucose (Misc Panel) 97 02/03/19 19:36: Bedside Glucose (Misc Panel) 135H 02/04/19 05:13: Immature Granulocyte % (Auto) 0.5, White Blood Count 7.6, Red Blood Count 3.67L, Hemoglobin 10.6L, Hematocrit 32.3L, Mean Corpuscular Volume 88.0, Mean Corpuscular Hemoglobin 28.9, Mean Corpuscular Hemoglobin Concent 32.8, Red Cell Distribution Width 13.7, Platelet Count 225, Neutrophils (%) (Auto) 73.1H, Lym phocytes (%) (Auto) 16.2L, Monocytes (%) (Auto) 8.3H, Eosinophils (%) (Auto) 1.2, Basophils (%) (Auto) 0.7, Neutrophils # (Auto) 5.5, Lymphocytes # (Auto) 1.2L, Monocytes # (Auto) 0.6, Eosinophils # (Auto) 0.1, Basophils # (Auto) 0.1, Nucleated Red Blood Cells % (auto) 0.0, Anion Gap 1L, Glomerular Filtration Rate > 60.0, Blood Urea Nitrogen 22H, Creatinine 0.54L, Sodium Level 137, Potassium Level 4.3, Chloride Level 103, Carbon Dioxide Level 33H, Calcium Level 8.4L 02/04/19 12:24: Bedside Glucose (Misc Panel) 148H CBC/BMP Laboratory Tests 02/04/19 05:13 Red Blood Count 3.67 L, Mean Corpuscular Volume 88.0, Mean Corpuscular Hemoglobin 28.9, Mean Corpuscular Hemoglobin Concent 32.8, Red Cell Distribution Width 13.7, Neutrophils (%) (Auto) 73.1 H, Lymphocytes (%) (Auto) 16.2 L, Monocytes (%) (Auto) 8.3 H, Eosinophils (%) (Auto) 1.2, Basophils (%) (Auto) 0.7, Neutrophils # (Auto) 5.5, Lymphocytes # (Auto) 1.2 L, Monocytes # (Auto) 0.6, Eosinophils # (Auto) 0.1, Basophils # (Auto) 0.1, Calcium Level 8.4 L FSBS Laboratory Tests Test 02/03/19 16:25 02/03/19 19:36 02/04/19 12:24 Range/Units Bedside Glucose (Misc Panel) 97 135 148 83-110 MG/DL Discharge Medications Scheduled Atorvastatin Calcium (Atorvastatin Calcium) 40 Mg Tablet, 40 MG PO DAILY, (Reported) Cholecalciferol (Vitamin D3) (Vitamin D3) 5,000 Unit Tablet, 5,000 UNIT PO DAILY, (Reported) Citalopram Hydrobromide (Citalopram HBr) 20 Mg Tablet, 20 MG PO DAILY, (Reported) Glipizide (Glipizide Xl) 5 Mg Tab.er.24, 5 MG PO DAILY, (Reported) Metformin HCl (Metformin HCl) 500 Mg Tablet, 500 MG PO BID, (Reported) Oxybutynin Chloride (Ditropan Xl) 10 Mg Tab.er.24, 10 MG PO DAILY, (Reported) Pantothenic Acid (Vit B5) (Pantothenic Acid) 500 Mg Tablet, 500 MG PO DAILY, (Reported) Rivaroxaban (Xarelto) 10 Mg Tablet, 10 MG PO DAILY Scheduled PRN Acetaminophen (Acetaminophen) 325 Mg Tablet, 650 MG PO Q4H PRN for PAIN, (Reported) Tramadol HCl (Tramadol HCl) 50 Mg Tablet, 1-2 TAB PO Q4H PRN for PAIN Allergies Coded Allergies: aspirin (Verified Allergy, Mild, nausea, 02/02/19) ABEBE OAKES MD Feb 04, 2019 15:03
== END 2019-02-04 15:45 | disposition home or self-care (01) | DRG 482 ==
LOC: EDBD 11:26 → M ED 11:26 → M ED INP 13:45 → M MS5PR 17:39
PROVIDERS: ADMIT Internal Medicine Nephrology; ATTEND Internal Medicine Nephrology
PROC: 0QS606Z Reposition Right Upper Femur with Intramedullary Internal Fixation Device, Open Approach (ICD-10-PCS; principal; 2019-02-02 18:00)
DX: S72.141A Displaced intertrochanteric fracture of right femur, initial encounter for closed fracture (principal); E11.9 Type 2 diabetes mellitus without complications; F32.9 Major depressive disorder, single episode, unspecified; R33.9 Retention of urine, unspecified; E78.5 Hyperlipidemia, unspecified; W18.09XA Striking against other object with subsequent fall, initial encounter; Y92.015 Private garage of single-family (private) house as the place of occurrence of the external cause; Z92.21 Personal history of antineoplastic chemotherapy; Z92.3 Personal history of irradiation; Z85.3 Personal history of malignant neoplasm of breast; Z90.13 Acquired absence of bilateral breasts and nipples; Z79.84 Long term (current) use of oral hypoglycemic drugs; Z79.01 Long term (current) use of anticoagulants; Z79.899 Other long term (current) drug therapy; Z96.652 Presence of left artificial knee joint; Z87.891 Personal history of nicotine dependence; Z88.6 Allergy status to analgesic agent